=== PATIENT | male | born 1990 | race African-American/Black ===

== ENCOUNTER 2025-06-16 18:51 | Emergency (ER) | payer OTHER ==
[~2025-06-16] VITALS: Ht 190.5 cm; Wt 127.0 kg
[2025-06-16 18:53] VITALS: PULSE 95; RESP 18; TEMP 98.2
[2025-06-16] MEDS ORDERED: ULTRAM 50MG50 MG PO (20:24)
[2025-06-16 20:56] VITALS: BP 188/116; O2SAT 98
== END 2025-06-16 20:40 | disposition home or self-care (01) ==
LOC: FSED 18:55
DX: M79.671 Pain in right foot (principal); I10 Essential (primary) hypertension; E78.5 Hyperlipidemia, unspecified
CPT/HCPCS: 99283